=== PATIENT | male | born 1970 | race Caucasian/White ===

== ENCOUNTER 2017-12-01 22:44 | Observation (INO) ==
[2017-12-01] MEDS ORDERED: Aspirin 81 MG TAB.CHEW PO ONE (23:02)
[2017-12-01] MEDS ORDERED: Nitroglycerin 0.4 MG TAB.SUBL SL ONE (23:02)
[2017-12-01] MEDS ORDERED: Ondansetron 4 MG/2 ML VIAL IVP ONE (23:02)
[2017-12-01 23:10] LABS: Basophils % 0.7 %; Eosinophils # 0.1 K/mcL (0.0-0.6); Hemoglobin 14.3 g/dL (12.9-16.9); Immature Granulocytes % 0.3 % (0-4); Lymphocytes # 0.9 K/mcL (0.6-4.6); Lymphocytes % 14.4 %; Mean Corpuscular HGB Conc 32.5 g/dL (31.6-35.5); Mean Corpuscular Hemoglobin 28.9 pg (28.0-33.3); Mean Corpuscular Volume 89.1 fL (83.0-100.0); Mean Platelet Volume 9.2 fL (9.4-12.4); Monocytes # 0.7 K/mcL (0.0-1.3); Monocytes % 12.4 %; Neutrophils # 4.3 K/mcL (1.6-8.9); Platelet Count 227 K/mcL (140-400); Red Blood Count 4.94 M/mcL (4.19-5.50); Red Cell Distribution Width 12.4 % (11.5-14.5); Segmented Neutrophils % 71.2 %
[2017-12-01 23:19] LABS: Prothrombin Time 10.8 Seconds (9.4-12.1)
[2017-12-01 23:22] LABS: Activated Partial Thrombo Time 28.7 Seconds (26.0-36.0)
[2017-12-01 23:31] LABS: BUN/Creatinine Ratio 14 (6-26); Blood Urea Nitrogen 14 mg/dL (6-20); Calcium 9.2 mg/dL (8.6-10.3); Carbon Dioxide 27 mEq/L (23-29); Chloride 106 mEq/L (98-107); Glucose 96 mg/dL (70-105); Osmolality,Calculated 288 (280-300); Potassium 3.8 mEq/L (3.5-5.1); Sodium 139 mEq/L (136-145); eGFR For African Americans > 60 (> 60); eGFR For Non-African Americans > 60 (> 60)
[2017-12-01] MEDS ORDERED: 0.9 % Sodium Chloride 1,000 ML IVC ONE (23:49)
--- NOTE | 2017-12-01 23:52 | Emergency Department Note ---
Disposition Clinical Impression: Unstable angina pectoris Chest pain Qualifiers: Chest pain type: unspecified Qualified Code(s): R07.9 - Chest pain, unspecified Disposition: Admitted As Inpatient Condition: Fair Time of Disposition: 23:56 Chest Pain HPI - General Chief Complaint: ED Chest Pain Stated Complaint: chest pain Time Seen by Provider: 12/01/17 23:02 Source: patient Mode of arrival: ambulatory Limitations: no limitations Vital Signs Reviewed: Yes Nursing Notes Reviewed: Yes - History of Present Illness HPI Narrative: 46-year-old male presents to the emergency department complaining of chest pain. He said the chest pain has been going on for 2 or 3 days but has intensely worsened over today. He said he went to work and said he was having crushing chest pain and having a horrible cough and did not feel well. Family states he never goes to the doctor and he called them at work saying that he did not feel well and wanted to go to the hospital which worried the family greatly. Patient does not have any medical issues does not take any medications. They say he has been coughing for last week. There are no other sick contacts at home. He is nauseous but not vomiting. He is complaining of chest pain is in the center of the chest 4 out of 10 pressure radiating to his left arm and up into the neck but does come and go. He says it does occur at rest but does not change on exertion. Patient says he does feel overall weakness. There are no other complaints from the patient including headaches, blurry vision, abdominal pain, shortness of breath, changes in bowel movements, pain with urination, pain or tingling going down the arms or legs. Severity scale (1-10): 9 - Related Data Allergies Allergy/AdvReac Type Severity Reaction Status Date / Time No Known Allergies Allergy Verified 12/01/17 22:45 Review of Systems: 10 point review of systems done and negative unless otherwise stated in history of present illness. All systems ED: reviewed and negative except as stated. Review of Systems: As Per HPI Chest Pain PMH - Past Medical History Medical history: Reports: no medical history Psychiatric history: Reports: no psych history - Social History Smoking Status: Never smoker Alcohol use: Reports: none Drug use: Reports: none Physical Exam - General Limitations: no limitations General appearance: alert, in no apparent distress - Head Head exam: atraumatic, normocephalic, normal inspection - Eye Eye exam: Present: normal appearance, PERRL, EOMI - ENT ENT exam: normal exam, normal oropharynx, mucous membranes moist - Neck Neck exam: Present: normal inspection, full ROM, trachea midline - Chest Chest inspection: Present: normal inspection, symmetric chest wall rise - Respiratory Respiratory exam: Present: normal lung sounds bilaterally - Cardiovascular Cardiovascular exam: Present: regular rate, normal rhythm, normal heart sounds - Abdominal Exam Abdominal exam: Present: soft, Non-Tender. Absent: tenderness, distention, guarding, rebound, rigidity - Extremities Exam Extremities exam: Present: normal inspection, full ROM. Absent: tenderness, pedal edema - Expanded Lower Extremity Exam Neurovascular/Tendon exam: Absent: motor deficit, sensory deficit, tendon deficit - Back Exam Back exam: Present: normal inspection, full ROM. Absent: tenderness - Neurological Exam Neurological exam: Present: alert, oriented X3 - Skin Skin exam: Present: warm, dry, intact, normal color Course Course Narrative: 46-year-old male presented to the emergency department complaining of chest pain we will do normal chest pain workup including CBC, BMP, troponin will get d -dimer as he is having a cough and was hypoxic. We will get a EKG. An chest x- ray. We will give patient nitroglycerin as well as 3 baby aspirin. Patient okay with this plan. Disposition pending workup. Vital Signs Temperature 98.4 F 12/01/17 22:46 Pulse Rate 116 12/01/17 22:46 Respiratory Rate 18 12/01/17 22:46 Blood Pressure 142/89 12/01/17 22:46 O2 Sat by Pulse Oximetry 97 12/01/17 22:46 Temperature 98.7 F 12/02/17 01:06 Pulse Rate 72 12/02/17 01:06 Respiratory Rate 18 12/02/17 01:06 Blood Pressure 129/75 12/02/17 01:06 O2 Sat by Pulse Oximetry 97 12/02/17 01:06 Oxygen Delivery Oxygen Delivery Nasal Cannula Chest Pain - [facility] Narrative Medical decision making narrative: 46-year-old male presented to the emergency department with chest pain. Upon evaluating him he was very white in color and was complaining of chest pain. We did started the chest pain workup on him chest x-ray and EKG showed no acute other maladies. All lab work came back normal including troponins. He had a normal d-dimer. Patient was given nitroglycerin upon getting that nursing said that his oxygen saturation dropped to 85% so is placed on 2 L via nasal cannula and sent him up to 95%. Patient is still complaining of just not feeling overall well. Dilaudid give him a 1 L bolus of normal saline as he said he could be dehydrated. Did give patient aspirin as well as nitroglycerin. He is still complaining of generalized chest pain but since getting the nitroglycerin did help low but he did get a headache from the nitroglycerin. Due to patient' s chest pain and not feeling well we felt that admission would be warranted just to rule out any signs of acute coronary syndrome. Patient agrees with this plan. Spoke with the hospitalist Dr. Hamlin who agreed to admit the patient to their service. Patient is admitted in stable condition. Chest X-Ray 12/01/17 23:02 IMPRESSION: No acute process. D/ / Amber Mcneill MD / Amber Mcneill MD Interpreting Provider: Amber Mcneill MD - Medical Records Medical records reviewed: Yes I reviewed the patient's medical records. - Lab Data Lab results reviewed: Yes I reviewed the patient's lab results. Result diagrams: 12/01/17 23:00 12/01/17 23:00 Lab Results 12/01/17 12/01/17 12/01/17 Range/Units 23:00 23:00 23:00 WBC 6.0 (4.3-11.1) K/mcL RBC 4.94 (4.19-5.50) M/mcL Hgb 14.3 (12.9-16.9) g/dL Hct 44.0 (37.5-50.1) % MCV 89.1 (83.0-100.0) fL MCH 28.9 (28.0-33.3) pg MCHC 32.5 (31.6-35.5) g/dL RDW 12.4 (11.5-14.5) % Plt Count 227 (140-400) K/mcL MPV 9.2 L (9.4-12.4) fL Immature Gran % 0.3 (0-4) % Seg Neutrophils % 71.2 % Lymphocytes % 14.4 % Monocytes % 12.4 % Eosinophils % 1.0 % Basophils % 0.7 % Neutrophils # 4.3 (1.6-8.9) K/mcL Lymphocytes # 0.9 (0.6-4.6) K/mcL Monocytes # 0.7 (0.0-1.3) K/mcL Eosinophils # 0.1 (0.0-0.6) K/mcL Basophils # 0.0 (0.0-0.2) K/mcL PT 10.8 (9.4-12.1) Seconds INR 1.0 APTT 28.7 (26.0-36.0) Seconds D-Dimer 361 (0-500) ng/mLFEU Sodium 139 (136-145) mEq/L Potassium 3.8 (3.5-5.1) mEq/L Chloride 106 (98-107) mEq/L Carbon Dioxide 27 (23-29) mEq/L BUN 14 (6-20) mg/dL Creatinine 0.98 (0.70-1.30) mg/dL Est GFR ( Amer) > 60 (> 60) Est GFR (Non-Af Amer) > 60 (> 60) BUN/Creatinine Ratio 14 (6-26) Glucose 96 (70-105) mg/dL Calculated Osmolality 288 (280-300) Calcium 9.2 (8.6-10.3) mg/dL Troponin I (< 0.04) ng/mL 12/01/17 Range/Units 23:00 WBC (4.3-11.1) K/mcL RBC (4.19-5.50) M/mcL Hgb (12.9-16.9) g/dL Hct (37.5-50.1) % MCV (83.0-100.0) fL MCH (28.0-33.3) pg MCHC (31.6-35.5) g/dL RDW (11.5-14.5) % Plt Count (140-400) K/mcL MPV (9.4-12.4) fL Immature Gran % (0-4) % Seg Neutrophils % % Lymphocytes % % Monocytes % % Eosinophils % % Basophils % % Neutrophils # (1.6-8.9) K/mcL Lymphocytes # (0.6-4.6) K/mcL Monocytes # (0.0-1.3) K/mcL Eosinophils # (0.0-0.6) K/mcL Basophils # (0.0-0.2) K/mcL PT (9.4-12.1) Seconds INR APTT (26.0-36.0) Seconds D-Dimer (0-500) ng/mLFEU Sodium (136-145) mEq/L Potassium (3.5-5.1) mEq/L Chloride (98-107) mEq/L Carbon Dioxide (23-29) mEq/L BUN (6-20) mg/dL Creatinine (0.70-1.30) mg/dL Est GFR ( Amer) (> 60) Est GFR (Non-Af Amer) (> 60) BUN/Creatinine Ratio (6-26) Glucose (70-105) mg/dL Calculated Osmolality (280-300) Calcium (8.6-10.3) mg/dL Troponin I < 0.03 (< 0.04) ng/mL - Radiology Data Radiology results reviewed: Yes I reviewed the patient's radiology results. - EKG Data EKG attestation: Yes I reviewed and interpreted this EKG. EKG results narrative: EKG done at 2251 review myself and the attending shows sinus tachycardia with no acute changes a rate of 103, RI interval 148, QRS 90, QTC 382 with a normal axis. No acute ST changes, no acute T-wave abnormalities, no signs of a heart strain or hypertrophy, no signs of heart block, no signs of W BW/Brugada syndrome. This EKG is unchanged when compared to old EKG done 04/22/12. Heart Score - Score History: Moderately Suspicious EKG: Normal Age: 45-65 Risk Factors: 1-2 risk factors Troponin: Less than normal limit HEART Score Total: 3 Attestation Statement - Attestation Attestation: I examined this patient and my medical decision-making was reviewed with the Resident Physician. I agree with the documented findings, disposition and treatment plan as described except to the extent set forth below. 46-year-old male presents to the emergency department complaining of some mid chest pains off-and-on for the past few days. Chest pain became acutely work this evening while at work some shortness of breath associated with the pain. Some nausea. The pain did radiate to the left arm and left neck. No history of heart problems previously. He has also had a cough for the past several days. No fever. On examination patient is a well-developed well-nourished male in no acute distress. He is alert and oriented 3. There is no cyanosis or diaphoresis. Patient does appear pale and slightly ashen in color. Breath sounds are clear and equal bilaterally. Heart regular rate and rhythm. EKG shows a sinus tachycardia with a heart rate 103. No acute ischemic ST elevation or depression. Chest x-ray negative. Labs reviewed. D-dimer normal. Troponin normal. The hospitalist, Dr. Hamlin, was consulted and accepted admission of the patient.
[2017-12-02] MEDS ORDERED: Acetaminophen 325 MG TABLET PO PRN (01:40)
[2017-12-02] MEDS: GuaiFENesin Liq 200 MG/10 ML UDC PO PRN ×2 (02:06→09:40)
[2017-12-02] MEDS ORDERED: Naloxone 0.4 MG/ML INJ IVP PRN (02:07)
[2017-12-02] MEDS ORDERED: Albuterol 2.5 MG/3 ML NEBULIZER IH PRN ×2 (02:13→04:52)
--- NOTE | 2017-12-02 02:21 | Internal Med History&Physical ---
<Nilton Barajas - Last Filed: 12/02/17 02:17> Date of Encounter: 12/02/17 Time of Encounter: 02:00 Assessment and Plan (1) Chest pain Current visit: Yes Status: Acute HEART Score 3; ED work up unremarkable -- admitted for ACS r/o Will recheck troponin in AM Will also get exercise stress test in AM due to likelihood of being lost to follow up (does not have primary care provider) Qualifiers: Chest pain type: unspecified Qualified Code(s): R07.9 - Chest pain, unspecified (2) Cough in adult Current visit: Yes Status: Acute Ongoing for several months and associated with nasal congestion and drainage Likely PND based on history and physical Will order cetirizine and guafenesin for symptoms Supplementary O2 and Albuterol Neb PRN dyspnea/wheezing Internal Medicine - H&P: HPI Admitted From: Home Plans for Post Hospital Care: Home History of present illness: Mr. Can is a 46 year old male was being admitted by the ED for ACS rule out. Patient has had ongoing cough for several months, but for the past 2 or 3 days, has developed a chest pain that his mid sternal, feels like a pulling sensation when it occurs, rapid and intermittent, and worse with coughing. No such chest pains occur at rest, and is not associated with any lightheadedness, diaphoresis, radiating sensation, nausea, vomiting, orthopnea, exertional dyspnea, or pedal edema. Patient does tell me that he constantly deals with what feels like mucus running down the back of his throat which provokes a cough. Patient commonly wakes up in the morning with nasal congestion. Denies any facial pain at this time. No fevers, no sick contacts. Does not take any medications for any reason including any allergy medications or antihypertensives including the KADI- i/ARB class, and is not a known asthmatic. Denies wheezing. No epigastric burning/pain or other symptoms of indigestion. Patient received initial cardiac workup in the ED including chest x-ray, EKG, troponin, D dimer, CBC, and comprehensive metabolic panel all of which were unremarkable. Due to heart score 3, patient was admitted for further ACS rule out. Past Med Surg Social Fam HX - Past Medical History Medical history: no medical history Psychiatric history: no psych history - Past Surgical History Surgical History: appendectomy - Social History Smoking Status: Never smoker Smokeless Tobacco Status: Yes Alcohol use: none Drug use: none - Family History Mother Living Status: Still Living Hx Family Respiratory Disorders: Yes (asthma) Hx Family Medical Disorders: Yes (gout) Father Living Status: Still Living Hx Family Cardiac Disorders: Yes (NM) Internal Medicine - H&P: Meds No Known Home Drugs 12/02/17 [History] 3 Allergy/AdvReac Type Severity Reaction Status Date / Time No Known Allergies Allergy Verified 12/01/17 22:45 All Systems PM: A 10-system review of systems was performed and is negative for pertinent findings except as documented above in the HPI. Review of systems: The HPI - Constitutional Vitals: Temp Pulse Resp BP Pulse Ox 98.7 F 72 18 129/75 97 12/02/17 01:06 12/02/17 01:06 12/02/17 01:06 12/02/17 01:06 12/02/17 01:06 Exam: CONSTITUTIONAL: Alert and oriented X3, well-nourished, well appearing, in no apparent distress HEAD: Normocephalic; atraumatic. EYES: PERRL, no scleral icterus, no drainage, no conjunctival injection NOSE: patient sniffles and has clear rhinorrhea Oropharynx: pink/moist, no tonsillar edema/erythema/exudates, did not note any postnasal drainage on initial exam RESP: NRD without use of accessory musculature, CTA b/l with no wheezes/rales/ rhonchi; trialed patient on room air and was saturating a 98%, coughs with deep inspiration CARD: Regular rhythm, without murmurs, rubs, or gallop ABD: grossly normal, soft, non-tender, no guarding/distention/rigidity SKIN: normal appearance, no pallor/diaphoresis,mottling,jaundice,cyanosis EXT: no pedal edema, no other lesions seen PSYCH: appropriate mood/affect Internal Med - H&P Results - Labs CBC & Chem 7: 12/01/17 23:00 12/01/17 23:00 <Vladislav Montaño - Last Filed: 12/02/17 05:58> Date of Encounter: 12/02/17 Time of Encounter: 05:15 - Constitutional Constitutional: fatigue, malaise, no chills, no fever(s), no night sweats - EENT Eyes: no blurry vision, no change in vision Nose, mouth and throat: nasal congestion, sinus pressure, sore throat - Cardiovascular Cardiovascular ROS IM: chest pain (with coughing only ), no dyspnea, no dyspnea on exertion, no edema, no palpitations, no paroxysmal nocturnal dyspnea, no syncope - Respiratory Respiratory: cough, wheezing, chest congestion, pain with cough, no dyspnea, no hemoptysis, no dyspnea on exertion - Gastrointestinal Gastrointestinal: no abdominal pain, no diarrhea, no hematemesis, no hematochezia, no melena, no nausea, no vomiting - Genitourinary Genitourinary ROS male: no dysuria, no flank pain, no hematuria - Musculoskeletal Musculoskeletal ROS IM: arthralgias, back pain, muscle cramps, myalgias - Integumentary Integumentary IM: no rash, no jaundice - Neurological Neurological ROS: no dizziness, no focal weakness, no headache(s) - Psychiatric Psychiatric: no anxiety, no depression - Endocrine Endocrine IM: no polydipsia, no polyuria - Hematologic/Lymphatic Hematologic/Lymphatic: no easy bruising, no lymphadenopathy - Allergic/Immunologic Allergic/Immunologic: wheezing, no GI upset with certain foods - Constitutional Vitals: Temp Pulse Resp BP Pulse Ox 98.2 F 74 15 119/76 94 12/02/17 05:27 12/02/17 05:27 12/02/17 05:27 12/02/17 05:27 12/02/17 05:27 General appearance: Present: cooperative, A&O X 3, pleasant, no acute distress ( coughs vigorously at times) - Head Head exam: Present: atraumatic, normal inspection - Eye Eye exam: Present: EOMI, PERRL. Absent: scleral icterus Pupils: Present: normal accommodation - ENT ENT exam: Present: mucous membranes dry, normal exam - Neck Neck exam general surgery: Present: full ROM, supple. Absent: lymphadenopathy, tenderness, nuchal rigidity - Expanded Neck Exam Neck exam: Absent: carotid bruit - Respiratory Respiratory exam: Present: chest wall tenderness (flared up by palpatin and coughing), prolonged expiratory phase, rhonchi, wheezes (rare scattered) Additional comments: coughing vigorously with reproducible chest wall pain - Cardiovascular Cardiovascular exam: Present: RRR, +S1, +S2. Absent: diastolic murmur, systolic murmur - GI/Abdominal GI/Abdominal exam: Present: normal bowel sounds, soft. Absent: hepatomegaly, splenomegaly, tenderness - Extremities Exam Extremities exam: Present: full ROM, normal capillary refill, warm. Absent: calf tenderness, tenderness - Back Exam Back exam: Absent: CVA tenderness (L), CVA tenderness (R) - Neurological Exam Neurological exam: Present: alert, CN II-XII intact, oriented X3, no focal deficits - Psychiatric Psychiatric exam: Present: normal affect, normal mood - Skin Skin exam: Present: dry, warm. Absent: rash Internal Med - H&P Results - Labs CBC & Chem 7: 12/01/17 23:00 12/01/17 23:00 - EKG Data -: EKG Interpreted by Myself EKG shows normal: sinus rhythm - EKG Data EKG comments: 12/02/17 05:48 Sinus rhythm; no acute ST-T changes - Diagnostic Studies Chest x-ray Status: image reviewed by me (negative) - Attending Attestation I discussed the patient TANGIRNAQ, PMH, ROS, lab data, and exam findings with Dr. Barajas. I then saw and examined patient independently as well. Throughout the interview and exam, he was coughing vigorously and clenching his left ribs/ chest wall as the coughing fits flared up his chest wall pain. He also has some chest congestion and wheezing on exam for me. He also has some frontal and maxillary sinus tenderness. Given his symptoms, I suspect he has bronchitis and sinusitis secondary to an inlfuenza like illness he experienced a few weeks ago. I don't think he is in any shape to tolerate a stress test. My clinical suspicion is rather low for angina. I initially recommended Dr. Barajas order a stress test given that he presented with chest pain. However, I suspect his chest pain is pleuritic in nature and aggravated by his bronchitis. We will treat him as such while we cycle troponins, EKG's. Stress test can be done as outpatient per PCP. However, if his symptoms worsen and are more suggestive of cardiac etiology, then we can proceed with an inpatient work-up if necessary. Other than my comments above and noted exam findings, I agree with Dr. Barajas's assessment and plan.
[2017-12-02] MEDS ORDERED: 0.9 % Sodium Chloride 1,000 ML IVC SCH (05:00)
[2017-12-02] MEDS ORDERED: *HR* Heparin 5,000 UNIT/ML VIAL SQ SCH (06:00)
[2017-12-02] MEDS: Ibuprofen 400 MG TABLET PO PRN ×2 (06:53→14:09)
[2017-12-02 07:15] LABS: 2009 H1N1 PCR NOT DETECTED (Not Detect); Influenza A PCR Positive (Negative); Influenza B PCR Negative (Negative)
[2017-12-02] MEDS: Ipratropium/Albuterol Neb 3 ML IH SCH ×3 (08:06→12:06)
[2017-12-02] MEDS ORDERED: levoFLOXacin 500 MG TABLET PO SCH (09:00)
[2017-12-02] MEDS ORDERED: Loratadine 10 MG TABLET PO SCH (09:00)
--- NOTE | 2017-12-02 12:34 | Electrocardiograph Report ---
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
[2017-12-02 12:56] VITALS: BP 105/67
--- NOTE | 2017-12-02 14:44 | Discharge Summary ---
Date of Encounter: 12/02/17 Time of Encounter: 14:39 - Discharge Diagnosis (1) Chest pain Priority: Primary Status: Acute Comments: Patient is chest pain is atypical, located in the bilateral frontal chest was muscle tenderness. Pain worsening with cough. He has been coughing for over last 3 days. Patient refuses stress test. He wants to go home. patient is ruled out acute KS with negative troponin Qualifiers: Chest pain type: unspecified Qualified Code(s): R07.9 - Chest pain, unspecified (2) Cough in adult Priority: Secondary Status: Acute Comments: Positive for influenza a. Likely from influenza A bronchitis - Discharge Medications Prescriptions: GuaiFENesin Liq [Robitussin Liq] 200 mg PO Q6HR PRN 7 Days #300 ml PRN Reason: Cough levoFLOXacin [Levaquin] 500 mg PO DAILY 7 Days #7 tablet Home Medications: Acetaminophen [Tylenol] 650 mg PO Q6HR PRN tablet 12/02/17 [Rx] GuaiFENesin Liq [Robitussin Liq] 200 mg PO Q6HR PRN 7 Days #300 ml 12/02/17 [Rx] Oseltamivir [Tamiflu] 75 mg PO BID 7 Days #14 capsule 12/02/17 [Rx] levoFLOXacin [Levaquin] 500 mg PO DAILY 7 Days #7 tablet 12/02/17 [Rx] Allergies/Adverse Reactions: 3 Allergy/AdvReac Type Severity Reaction Status Date / Time No Known Allergies Allergy Verified 12/01/17 22:45 Date of admission: 12/02/17 00:22 Primary care physician: PCP NONE Discharging clinician: Mariza Bond Anticipated date of discharge: 12/02/17 - Patient Status Disposition: Home, Self-Care Condition: Good Functional capacity at discharge: independent ambulation - Discharge Instructions Follow Up With: NONE,PCP [Primary Care Provider] - (Offered to find patient a family physician. Family prefers to find him one with them. Thank you) - Diet and Activity Diet: advance to your usual diet Hospital course: Mr. Can is a 46 year old male Time spent discussing smoking cessation with patient: more than 10 minutes - Time Spent with Patient Total time spent providing and/or coordinating discharge services: Less than 30 minutes - Constitutional Vitals: Temp Pulse Resp BP Pulse Ox 98.3 F 86 18 105/67 92 12/02/17 12:49 01/17/18 12:49 12/02/17 12:49 12/02/17 12:49 12/02/17 12:49 General appearance: Present: cooperative, A&O X 3, pleasant, no acute distress ( coughs vigorously at times) Exam: CONSTITUTIONAL: patient appears as an age appropriate male in no acute distress. EYES Clear sclerae, bilateral pupils are equal, reactive to light. EMOI. RESPIRATORY: No accessory muscle use, bilateral clear to auscultation, no wheezing, no crackles/rales. CARDIOVASCULAR: Regular heart rate, normal S1 and S2, no murmurs GASTROINTESTINAL: bowel sounds present, soft, no tenderness. MUSCULOSKELETAL: Joints in normal range of motion, no clubbing, no edema, no cyanosis. Bilateral peripheral pulses 2+. NEUROLOGIC: CN II to XII are grossly intact, no focal neurological deficit.
== END 2017-12-02 16:10 | disposition home or self-care (01) ==
LOC: EMEROO 22:44 → 3NENU 22:44 → SUATTDRO 12-02 00:22 → 3NENU 12-02 00:38 → 3ANU 12-02 12:15
PROVIDERS: ADMIT Internal Medicine; ATTEND Hospitalist